=== PATIENT | female | born 1935 | race Caucasian/White ===

== ENCOUNTER → 2016-05-16 | Outpatient (CLI) | payer OTHER ==
[~2016-05-16] MED LIST: ACET-1311 PO; ACET500C35 PO; ADVIN10/60 INH; ALBU1AER9 INH; ASCA500 PO; ASPI-232 PO; BIMA0.01 OP; CALC500C70 PO; CHOL2000 PO; CYAN100020 PO; FURO-85 PO; IPRASOL4 INH; LEVO50TA PO; METO25TA56 PO; MULT-610 PO; OMEG10007 PO; OXYC5TAB PO; PILO4SOL OPB; RISE150T PO; SPIR25TA PO
--- NOTE | 2016-05-16 11:27 | DIAGNOSTIC IMAGING REPORT ---
CT SCAN OF THE CHEST WITHOUT IV CONTRAST CLINICAL HISTORY: Squamous cell carcinoma. COMPARISON STUDY: Chest radiograph dated 03/04/2016. Chest CT dated 09/12/2015. TECHNIQUE: CT scan of the thorax was performed from the thoracic inlet to the upper abdomen. Images are reviewed in the axial, sagittal, and coronal planes. IV contrast was not administered for this examination as per the referring clinician. CT DOSE: 160.80 mGycm FINDINGS: Thyroid: Imaged portions of the thyroid gland are normal in size and attenuation. Thoracic aorta: There is advanced atherosclerotic calcification of the thoracic aorta, which is normal in caliber and demonstrates standard 3-vessel arch anatomy. Heart: The patient is status post midline sternotomy. The heart is enlarged and without pericardial effusion. A prosthetic aortic valve is noted. The coronary arteries are densely calcified. Enlargement of the main pulmonary arteries suggests pulmonary artery hypertension. Lungs and pleural spaces: Emphysema is noted. There are postoperative changes from left lower lobe resection with mild compensatory hyperinflation of the right lung. Pleural fluid is noted at the left lung base and likely on a postoperative basis. The trachea and central airways are clear. A small fat-containing Bochdalek hernia and parenchymal scarring are noted at the right lung base. Small calcified granulomas are noted in the right lung. There are 2 low suspicion foci of nodular pleural thickening in the right upper lobe along the major fissure seen on images #115 and #120. These measure up to 4 mm and are unchanged. No new/concerning pulmonary lesion is identified. No airspace consolidation is identified typical for pneumonia. Mediastinum: There is no mediastinal lymphadenopathy. Sil: Not well assessed without IV contrast. Axillae: There is no axillary lymphadenopathy. Upper abdomen: There is a small hiatal hernia. Cortical atrophy is noted in the partially imaged kidneys. Scattered hepatic cysts measure up to 1.5 cm. Additional subcentimeter hepatic hypodensities also likely represent cysts but are too small for definitive characterization. Skeletal structures: The skeletal structures are osteopenic. There are compression deformities of T3, T4, T5, T6, T7, T8, and L2. No large retropulsed fragments are identified. There is thoracic hyperkyphosis. No lytic or blastic bony lesions are clearly identified. There are healed bilateral rib fractures. IMPRESSION: 1. Cardiomegaly and emphysema. 2. There are postoperative changes from left lower lobe resection. Pleural fluid at the left lung base is likely on a postoperative basis. 3. There is no evidence of recurrent or metastatic disease in the thorax. 4. No airspace consolidation is seen typical for pneumonia. 5. There are numerous thoracolumbar compression deformities as above. 6. Additional findings as above. Electronically signed by: Vineet Ku M.D. 05/16/2016 11:26 AM Dictated Date/Time: 05/16/2016 11:17 AM
== END | disposition home or self-care (01) ==
LOC: C.CTS 10:58
PROVIDERS: ATTEND Surgery
DX: C34.90 Malignant neoplasm of unspecified part of unspecified bronchus or lung (principal)

== ENCOUNTER → 2016-11-14 | Outpatient (CLI) | payer OTHER ==
--- NOTE | 2016-11-14 12:22 | DIAGNOSTIC IMAGING REPORT ---
(CHEST) THORAX WITHOUT CLINICAL HISTORY: C34.90 Squamous cell carcinoma of lung COMPARISON STUDY: 05/16/2016 CT DOSE: 145.97 mGycm TECHNIQUE: CT of the thorax was performed from the thoracic inlet to the lung bases. Images are reviewed in the axial, sagittal, and coronal planes. IV contrast was not administered for this examination. A dose lowering technique was utilized adhering to the principles of ALARA. FINDINGS: Thyroid: Imaged portions of the thyroid gland are normal in appearance. Thoracic aorta: The thoracic aorta is normal in course and caliber, noting standard 3 vessel arch anatomy. Heart: The heart is normal in size and configuration, without pericardial effusion. Lungs and pleural spaces: There is underlying pulmonary emphysema. There are postsurgical changes of a left lower lobectomy. There is stable left-sided pleural thickening. There is no focal pulmonary consolidation. Small right-sided perinephric visual nodules remain stable. There are scattered tiny right upper lobe pulmonary nodules, the largest of which measures 3 mm. These also remain stable. Mediastinum: There is no evidence of pathologic mediastinal lymphadenopathy by size criteria. Sil: There is no evidence of pathologic hilar adenopathy given the limitations of a noncontrast study Axilla: There is no evidence of pathologic axillary lymphadenopathy Upper abdomen: Hepatic hypodensities remain stable Skeletal structures: Multiple vertebral body compression deformities are again evident. There are postsurgical changes of a midline sternotomy. IMPRESSION: 1. Postsurgical changes of a left lower lobectomy 2. Stable minor left-sided pleural thickening 3. Stable tiny subcentimeter right lung pulmonary nodules the largest of which measures 3 mm 4. No evidence of recurrent tumor or metastatic disease. 5. Emphysema Electronically signed by: Kraig Tompkins M.D. 11/14/2016 12:20 PM Dictated Date/Time: 11/14/2016 12:13 PM
== END | disposition home or self-care (01) ==
LOC: C.CTS 11:38
PROVIDERS: ATTEND Surgery
DX: C34.90 Malignant neoplasm of unspecified part of unspecified bronchus or lung (principal)

== ENCOUNTER → 2017-05-20 | Outpatient (CLI) | payer OTHER ==
--- NOTE | 2017-05-20 11:28 | DIAGNOSTIC IMAGING REPORT ---
(CHEST) THORAX WITHOUT CT DOSE: 162.45 mGycm HISTORY: Lung cancer C34.90 Squamous cell carcinoma of lung6m F.UP., LAST CT TECHNIQUE: Multiaxial CT images of the chest were performed without contrast. A dose lowering technique was utilized adhering to the principles of ALARA. COMPARISON: 11/14/2016 FINDINGS: Findings of a left lower lobectomy are again noted. At the left lung base is interval development of an irregularly marginated density measuring 2.9 x 1.1 cm. Differential considerations include a inflammatory process, recurrent neoplasm, versus atypical parenchymal scarring. No significant mediastinal or hilar adenopathy within limitations of an unenhanced scan. Minimal nodularity of the right upper lung remains stable. Interval development of several right middle lobe nodules measuring 4 and 3 mm respectively. Additional nodule anterior aspect right base measuring 3.5 and 3.6 mm respectively. Moderate stable cardiomegaly. Unchanged findings of a prior median sternotomy. Stable postprocedural scarring left lung base. IMPRESSION: 1. Stable operative findings of a left lower lobectomy. 2. Interval development of an irregular density left lung base measuring 2.9 x 1.2 cm. 3. Differential considerations include inflammatory process, neoplasm, versus atypical parenchymal scarring. 4. Mildly progressive nodular change mid and lower aspect right middle lobe. 5. Stable right upper lung micronodular area. 6. Recurrent or metastatic change must be the diagnosis of exclusion. The above report was generated using voice recognition software. It may contain grammatical, syntax or spelling errors. Electronically signed by: Oscar Durbin M.D. 05/20/2017 11:27 AM Dictated Date/Time: 05/20/2017 11:15 AM
== END | disposition home or self-care (01) ==
LOC: C.CTS 10:55
PROVIDERS: ATTEND Surgery
DX: C34.91 Malignant neoplasm of unspecified part of right bronchus or lung (principal)

== ENCOUNTER → 2017-07-06 | Outpatient (CLI) | payer OTHER ==
--- NOTE | 2017-07-06 14:05 | DIAGNOSTIC IMAGING REPORT ---
(CHEST) THORAX WITHOUT CLINICAL HISTORY: 81 years-old Female presenting with C34.90 Squamous cell carcinoma of lung. TECHNIQUE: Multidetector CT imaging of the chest was performed without the use of intravenous contrast. IV contrast: None. A dose lowering technique was used consistent with the principles of ALARA (as low as reasonably achievable). COMPARISON: 05/20/2017. CT DOSE (mGy.cm): The estimated cumulative dose is 195.40 mGy.cm. FINDINGS: [employer] Director topogram: Hyperinflation. Postsurgical changes of sternotomy and aortic valve replacement. Cardiomegaly. On soft tissue windows, normal thyroid and thoracic inlet. No axillary, supraclavicular, or mediastinal lymphadenopathy. Evaluation of the mary carmen limited without intravenous contrast. Atherosclerosis of the aorta. Postsurgical changes of aortic valve replacement. Mild biatrial enlargement. Coronary artery calcification. Mitral annular calcification. No pericardial or pleural effusion. Left pleural thickening. Well-defined hypodensities in the liver likely hepatic cysts. On lung windows, mild diffuse centrilobular emphysema. At the previous site of consolidation in the posterior basal left lower lobe, interval decrease in consolidation is noted. There is a residual nodular solid 6 mm focus of consolidation (series 4 image 198). Minimal surrounding groundglass opacity and nodularity. Postsurgical changes of left lower lobectomy. Groundglass opacity in the angular likely scarring, unchanged. Calcified granuloma noted at the right apex. Punctate solid nodule in the periphery of the right apex (series 4 image 53), unchanged. Numerous additional solid punctate nodules in the right upper and middle lobes, unchanged. Small solid fissural nodules also noted on the right, unchanged. Fat-containing right Bochdalek hernia. Associated architectural distortion and scarring at the right lung base, unchanged. No new nodule or infiltrate. Mild bronchial wall thickening. Central airways patent. On bone windows, degenerative changes of the spine. Exaggerated thoracic kyphosis with multiple mild compression deformities in the setting of osteopenia. These are unchanged from prior. IMPRESSION: 1. Significant interval decrease in consolidation in the left posterior basal segment, which strongly favors an infectious or inflammatory etiology. Findings suspected to be postinfectious or postinflammatory, however, follow-up to resolution could be considered. 2. Multiple small solid pulmonary nodules in the right upper and middle lobes. These are unchanged over a span of 12 months, consistent with a benign etiology for Jeff Society 2017 recommendations below. No new nodule. 3. Emphysema. 4. Postsurgical changes of left lower lobectomy. 5. Osteopenia with mild compression deformities of multiple thoracic vertebral body levels, unchanged. Please refer to below summary of Fleischner Society 2017 recommendations for follow-up of incidental CT nodules (Victor Manuel Dallas et al. Guidelines for management of incidental pulmonary nodules detected on CT images: From the Fleischner Society 2017. Radiology 2017; 284: 228-243.) SOLID NODULES Single nodule; size < 6 mm * Low risk patients: No routine follow-up * High risk patients: Optional CT at 12 months Single nodule; size 6-8 mm * Low risk patients: CT at 6-12 months, then consider CT at 18-24 months * High risk patients: CT at 6-12 months, then at 18-24 months Single nodule; size > 8 mm * Either low or high risk patients: Considered CT at 3 months, PET/CT, or tissue sampling Multiple nodules; size < 6 mm * Low risk patients: No routine follow up * High risk patients: Optional CT at 12 months Multiple nodules; size 6-8 mm * Low risk patients: CT at 3-6 months, then consider CT at 18-24 months * High risk patients: CT at 3-6 months, then at 18-24 months Multiple nodules; size > 8 mm * Low risk patients: CT at 3-6 months, then consider at 18-24 months * High risk patients: CT at 3-6 months, then at 18-24 months SUBSOLID NODULES Single ground-glass nodule * Nodule size < 6 mm: No routine follow-up * Nodule size > or = 6 mm: CT at 6-12 months to confirm persistence, then CT every 2 years until 5 years Single part-solid nodule * Nodule size < 6 mm: No routine follow-up * Nodules size > or = 6 mm: CT at 3-6 months to confirm persistence. If unchanged and solid component remains < 6 mm, annual CT should be performed for 5 years Multiple nodules * Nodule size < 6 mm: CT at 3-6 months. If stable, consider CT at 2 and 4 years. * Nodules size > or = 6 mm: CT at 3-6 months. Subsequent management based on the most suspicious nodule(s) NOTE: These guidelines apply to incidental nodules. These guidelines do not apply to patients younger than 35 years, immunocompromised patients, or patients with cancer. * Low risk patients: Minimal or absent history of smoking and/or other known risk factors * High risk patients: History of smoking, exposure to other carcinogens, emphysema, fibrosis, upper lobe location, family history of lung cancer, etc. If a nodule up to 8 mm is partly solid or is ground glass, further follow-up is required after 24 months to exclude possible slow growing adenocarcinoma. Electronically signed by: Elliott Gandhi M.D. 07/06/2017 2:04 PM Dictated Date/Time: 07/06/2017 1:54 PM
== END | disposition home or self-care (01) ==
LOC: C.CTS 12:34
PROVIDERS: ATTEND Surgery
DX: C34.90 Malignant neoplasm of unspecified part of unspecified bronchus or lung (principal)

== ENCOUNTER → 2017-11-17 | Outpatient (CLI) | payer OTHER ==
[~2017-11-17] MED LIST changes: +IPRA-64 INH; -IPRASOL4 INH
--- NOTE | 2017-11-17 09:54 | DIAGNOSTIC IMAGING REPORT ---
(CHEST) THORAX WITHOUT CT DOSE: 162.59 mGycm CLINICAL HISTORY: 82 years-old Female with C34.90 Squamous cell carcinoma of [id number]. Follow-up study in a patient with history of squamous cell carcinoma of the lung, COPD with prior lobectomy TECHNIQUE: Multiaxial CT images of the chest were performed without contrast. A dose lowering technique was utilized adhering to the principles of ALARA. COMPARISON: CT chest 07/06/2017. FINDINGS: No dominant thyroid nodule identified. Moderate multichamber cardiac enlargement with prosthetic aortic valve. Mitral annular calcifications are noted. Extensive calcification of the thoracic aorta. No aortic aneurysm. No pathologically enlarged lymph nodes identified by CT size criteria. Advanced upper lobe predominant centrilobular emphysema. Postoperative changes from prior left lower lobectomy. There is improved aeration about the left lung base with persistent groundglass and tree-in-bud nodular opacities. Nodule measuring up to 5 mm on image 192 series 4 appears slightly decreased in size from comparison study. There are unchanged scattered solid nodules about the bilateral lungs, most of which measure in the 3 mm range. Additionally, there are unchanged fissural lymph nodes on the right. Mild biapical pleural-parenchymal scarring. No new or enlarging nodules identified. Mild bilateral bronchial wall thickening suggests chronic bronchitis. Central airways are patent. No acute process of the imaged upper abdomen. Soft tissues and breast parenchyma appear unremarkable. Lower sternotomy wires are noted. Demineralized appearance of the bones. Multilevel degenerative changes about the spine. Multiple remote appearing compression deformities redemonstrated. IMPRESSION: 1. Postoperative changes from prior left lower lobectomy. No evidence of recurrent or metastatic disease within the chest. 2. Advanced centrilobular emphysema with biapical pleural-parenchymal scarring. 3. Improved aeration of the left lung base with mild persistent tree-in-bud nodularity and groundglass densities suggesting pneumonitis with bronchiolitis. 5 mm solid nodule within this distribution appears slightly decreased in size from comparison. 4. Unchanged appearance of the multiple scattered bilateral solid pulmonary nodules, most of which measure in the 3 mm range. 5. Additional findings as above. Electronically signed by: Tanner Davison M.D. 11/17/2017 9:52 AM Dictated Date/Time: 11/17/2017 9:36 AM
== END | disposition home or self-care (01) ==
LOC: C.CTS 09:26
PROVIDERS: ATTEND Surgery
DX: C34.90 Malignant neoplasm of unspecified part of unspecified bronchus or lung (principal); J43.9 Emphysema, unspecified; R91.8 Other nonspecific abnormal finding of lung field